=== PATIENT | male | born 1950 | race Caucasian/White ===

== ENCOUNTER → 2017-11-17 | Outpatient (CLI) | payer BC ==
[2017-11-17 09:28] LABS: CREATININE 1.27 mg/dL (0.70-1.30)
--- NOTE | 2017-11-17 13:19 | MRI ---
STUDY: MRI OF THE BRAIN WITHOUT AND WITH GADOLINIUM History: History of pituitary tumor. Follow-up. Comparison: Brain MRI from December 13, 2013. Technique: Multiplanar multi-sequence MRI of the brain was obtained utilizing standard departmental p rotocol. Sagittal and axial T1, axial T2, FLAIR, diffusion (DWI/ADC) images through the brain were pe rformed. 20 cc of Omniscan was administered without reported complication following acquisition of informed wr itten consent. Post gadolinium axial and coronal whole brain images were performed. Findings: Pre gadolinium brain: The sulci, cisterns, and ventricles are age appropriate. There is no evidence o f acute territorial infarction, hemorrhage, mass, mass effect or midline shift. There are no abnormal intra-axial or extra-axial fluid collections. The major intracranial vascular flow voids are intact. Post gadolinium brain: Following the uneventful administration of intravenous gadolinium, there is no evidence of abnormal brain parenchymal or leptomeningeal enhancement. MRI sella: Again noted are postsurgical changes involving the sella turcica, with defects in its ante rior and inferior engel. There is a defect involving the superior 3/4 of the clivus. The infundibulum is intact. There is mild deviation of the infundibulum to the right. 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 There is a rim of enhancing soft t issue surrounding the cystic structure, which is adherent to the right side of the resection cavity. It is unclear whether this represents glandular tissue or scar tissue. The cavernous internal carotid artery flow voids are intact. No new mass is identified. IMPRESSION: 1. No evidence of acute intracranial abnormality. No evidence of disease recurrence within the sella turcica or brain. Reported By:
== END ==
LOC: RAD 08:56
PROVIDERS: ATTEND Internal Medicine Endocrinology, Diabetes & Metabolism
DX: D10.7 Benign neoplasm of hypopharynx (principal)
CPT/HCPCS: 36415; 70553; 82565; 84520